=== PATIENT | female | born 1945 | race Caucasian/White ===

== ENCOUNTER 2022-07-17 15:21 | Outpatient (CLI) | payer MEDICARE, OTHER | END 2022-07-17 15:22 | disposition home or self-care (01) | LOC: CSHMAMMO 15:21 | PROVIDERS: ATTEND Family Medicine | DX: Z12.31 Encounter for screening mammogram for malignant neoplasm of breast (principal) | CPT/HCPCS: 77063; 77067 ==

== ENCOUNTER 2023-06-29 03:35 | Emergency (ER) | payer MEDICARE, OTHER ==
[2023-06-29 04:14] LABS: Bilirubin Neg (Negative); Blood, Urine 250 (Negative); Glucose, Urine (Dipstick) Normal (Negative); Ketone, Urine Negative (Negative); Leukocyte 500 (Negative); Nitrite Negative (Negative); Protein, Urine (Dipstick) 100 mg/dl (Neg-Trace); pH, Urine 6.5 (5.0-9.0)
[2023-06-29 04:17] LABS: #Basophils 0.1 10x3/uL (0.0-0.2); #Eosinphils 0.2 10x3/uL (0.0-0.5); #Monocytes 0.8 10x3/uL (0.0-1.1); #Neutrophils 6.1 10x3/uL (1.5-8.4); %Basophils 0.8 % (0.0-2.0); %Eosinophils 1.8 % (0.0-6.0); %Lymphocytes 13.9 % (18.0-47.0); %Monocytes 9.5 % (0.0-10.0); %Neutrophils 73.8 % (40.0-75.0); Hematocrit 36.4 % (34.9-44.5); Hemoglobin 12.4 g/dL (12.0-15.5); Mean Corpuscular HGB CONC 34.1 g/dL (32.0-36.0); Mean Corpuscular Hemoglobin 29.6 pg (27.0-33.0); Mean Corpuscular Volume 86.9 fl (81.6-98.3); Mean Platelet Volume 9.6 fl (7.4-10.4); Platelet Count 249 10x3/uL (150-450); RBC Distribution Width 12.9 % (11.5-14.5); Red Blood Cell (RBC) Count 4.19 10x6/uL (3.90-5.03); White Blood Cell (WBC) Count 8.3 10x3/uL (3.5-10.5)
[2023-06-29 04:21] LABS: Clarity Cloudy (Clear)
[2023-06-29 04:22] LABS: CAUTI Indications for Culture Pelvic or flank pain; RBC/HPF Greater than 50 HPF (0-3); WBC/HPF Greater Than 50 HPF (0-3)
[2023-06-29 04:26] LABS: Bacteria/HPF 3+ HPF (None Seen); Squamous Epithelial 0-3 HPF (0-3); Transitional Epithelial 0-3 HPF (None Seen); Urine Culture Reflex Yes Yes
[2023-06-29 04:28] LABS: ALT (SGPT) 13 U/L (8-55); AST (SGOT) 18 U/L (5-34); Albumin 4.1 g/dL (3.4-4.8); Alkaline Phosphatase 64 U/L (40-110); Anion Gap 16 mmol/L (10-20); BUN (Urea Nitrogen) 23 mg/dL (9.8-20.1); Bilirubin, Total 0.6 mg/dL (0.2-1.2); Calc. Creatinine Clearance 0 mL/min (70-130); Calcium 9.1 mg/dL (7.8-10.44); Carbon Dioxide 24 mmol/L (23-31); Chloride 102 mmol/L (98-107); Estimated GFR 84; Globulin 2.7 g/dL (2.4-3.5); Glucose 130 mg/dL (83-110); Potassium 3.6 mmol/L (3.5-5.1); Protein, Total 6.8 g/dL (5.8-8.1); Sodium 138 mmol/L (136-145)
[2023-06-29] MEDS ORDERED: cefTRIAXone (ROCEPHIN) 1 GM VIAL ONE (04:32)
== END 2023-06-29 05:00 | disposition home or self-care (01) ==
LOC: CSHERS 03:35
DX: N39.0 Urinary tract infection, site not specified (principal); R31.9 Hematuria, unspecified; I10 Essential (primary) hypertension; E11.9 Type 2 diabetes mellitus without complications
CPT/HCPCS: 80053; 81001; 83605; 85025; 87077; 87086; 87186; 96374; J0696

== ENCOUNTER 2023-10-17 13:50 | Outpatient (CLI) | payer MEDICARE, OTHER | END 2023-10-17 13:51 | disposition home or self-care (01) | LOC: CSHMAMMO 13:50 | PROVIDERS: ATTEND Family Medicine | DX: Z13.820 Encounter for screening for osteoporosis (principal); M85.89 Other specified disorders of bone density and structure, multiple sites; Z78.0 Asymptomatic menopausal state | CPT/HCPCS: 77080 ==